=== PATIENT | female | born 1940 | race Caucasian/White ===

== ENCOUNTER → 2023-01-16 11:04 | Outpatient (CLI) | payer MEDICARE, SELFPAY ==
[2023-01-16 12:42] LABS: Add Manual Diff / Slide Review NO; Basophils Absolute Auto 100 /uL (0-100); Eosinophils Absolute Auto 500 /uL (0-450); Eosinophils Percent Auto 5.3 % (2-4); Hematocrit 32.1 % (36-46); Hemoglobin 10.8 g/dL (12.0-16.0); Lymphocytes Absolute Auto 1500 /uL (1100-4500); Lymphocytes Percent Auto 15.4 % (25-40); Mean Corpuscular HGB Conc 33.6 % (30-36); Mean Corpuscular Hemoglobin 29.2 PG (26-34); Mean Corpuscular Volume 87.1 fL (80-100); Monocytes Absolute Auto 900 /uL (0-900); Monocytes Percent Auto 9.7 % (3-14); Neutrophils Absolute Auto 6500 /uL (1500-7000); Neutrophils Percent Auto 68.6 % (50-75); Platelet Count 246 X10^3/uL (150-400); Red Blood Cell Count 3.69 X10^6/uL (4.0-5.2); Red Cell Distribution Width 13.4 % (11.6-14.8); White Blood Cell Count 9.4 X10^3/uL (4.5-11.0)
[2023-01-16 13:10] LABS: BUN Creatinine Ratio 18.5 (6-22); Blood Urea Nitrogen 20 mg/dL (7-17); Calcium 9.4 mg/dL (8.4-10.2); Carbon Dioxide 26 mmol/L (22-32); Chloride 105 mmol/L (98-107); Estimated Glomerular Filt Rate 52 mL/min (>60); Glucose 92 mg/dL (80-110); HEMOLYSIS < 15 (0-50); Potassium 4.4 mmol/L (3.4-5.1); Sodium 138 mmol/L (137-145)
== END ==
PROVIDERS: Referring Provider Internal Medicine Interventional Cardiology; Visit Provider Internal Medicine Interventional Cardiology
DX: I35.0 Nonrheumatic aortic (valve) stenosis (principal)
CPT/HCPCS: 36415; 80048; 85025

== ENCOUNTER → 2023-11-28 12:12 | Outpatient (CLI) | payer MEDICARE, SELFPAY ==
[2023-11-28 13:48] LABS: Add Manual Diff / Slide Review NO; Basophils Absolute Auto 100 /uL (0-100); Eosinophils Absolute Auto 300 /uL (0-450); Eosinophils Percent Auto 3.1 % (2-4); Hematocrit 33.5 % (36-46); Hemoglobin 11.1 g/dL (12.0-16.0); Lymphocytes Absolute Auto 1800 /uL (1100-4500); Lymphocytes Percent Auto 18.7 % (25-40); Mean Corpuscular HGB Conc 33.3 % (30-36); Mean Corpuscular Hemoglobin 29.3 PG (26-34); Mean Corpuscular Volume 87.9 fL (80-100); Monocytes Absolute Auto 800 /uL (0-900); Monocytes Percent Auto 8.3 % (3-14); Neutrophils Absolute Auto 6600 /uL (1500-7000); Neutrophils Percent Auto 68.9 % (50-75); Platelet Count 312 X10^3/uL (150-400); Red Blood Cell Count 3.81 X10^6/uL (4.0-5.2); Red Cell Distribution Width 13.1 % (11.6-14.8); White Blood Cell Count 9.6 X10^3/uL (4.5-11.0)
[2023-11-28 14:21] LABS: BUN Creatinine Ratio 19.5 (6-22); Blood Urea Nitrogen 24 mg/dL (7-17); Calcium 10.4 mg/dL (8.4-10.2); Carbon Dioxide 25 mmol/L (22-32); Chloride 107 mmol/L (98-107); Estimated Glomerular Filt Rate 44 mL/min (>60); Glucose 141 mg/dL (80-110); HEMOLYSIS < 15 (0-50); Potassium 4.5 mmol/L (3.4-5.1); Sodium 139 mmol/L (137-145)
== END ==
LOC: LAB 12:14
PROVIDERS: PCP Nurse Practitioner Family; Referring Provider Internal Medicine Interventional Cardiology; Visit Provider Internal Medicine Interventional Cardiology
DX: Z95.2 Presence of prosthetic heart valve (principal); I35.0 Nonrheumatic aortic (valve) stenosis
CPT/HCPCS: 36415; 80048; 85025

== ENCOUNTER 2024-02-19 08:03 | Day surgery (SDC) | payer MEDICARE, SELFPAY ==
--- NOTE | 2024-02-19 | PATH_ITS ---
[facility] Accession Number: [id number] No. of containers..01 Tissue . 01 Material submitted: . esophagus, E-G Junction - GE JUNCTION . 01 Clinical history: . R/O PINK'S . 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 No dysplasia identified. . 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 STO 02/21/2024 1416 Local . 01 Electronically signed: . Wyatt Vance MD, Pathologist NPI- [id number] . 01 Gross description: . Received in formalin with two patient identifiers and GE junction, is a single hand soft tissue fragment, 0.5 cm in greatest dimension, submitted in A1. ([id number]) /MRV 02/21/20246 Local . 01 Pathologist provided ICD-10: K22.70 . 01 CPT . 971538 Specimen Comment: A courtesy copy of this report has been sent to [phone] Performed at: [address] [id number] MD Wyatt Vance MD Phone: [phone]
[2024-02-19 08:34] VITALS: BP 151/70; PULSE 63; RESP 16; TEMP 36.1; O2SAT 98
--- NOTE | 2024-02-19 08:36 | P.HP_ITS ---
History of Present Illness History of Present Illness Chief complaint: [facility] – [place] Narrative: history of worsening GE reflux and possible mild dysphagia PFSH Medical History (Updated 02/19/24 @ 08:25 by Ina Bolden, RN) Hx of hyperlipidemia Hx of primary hypertension Hx of gastroesophageal reflux (GERD) Surgical History (Updated 02/19/24 @ 08:25 by Ina Bolden, RN) History of carpal tunnel surgery Hx of hemorrhoidectomy History of bunionectomy Heart valve replaced (~2022) Meds Home Medications and Allergies Home Medications Medication Instructions Recorded Confirmed Type Aspir-81 81 mg PO DAILY 02/19/24 02/19/24 History atorvastatin 20 mg tablet 20 mg PO DAILY 02/19/24 02/19/24 History calcium carbonate 500 mg PO DAILY 02/19/24 02/19/24 History cholecalciferol (vitamin D3) 25 25 mcg PO DAILY 02/19/24 02/19/24 History mcg (1,000 unit) chewable tablet (Vitamin D3) evolocumab 140 mg/mL subcutaneous 140 mg SUBCUT Q2W 02/19/24 02/19/24 History pen injector (Repatha Ninaick) famotidine 20 mg tablet 20 mg PO BID 02/19/24 02/19/24 History magnesium 100 mg capsule 100 mg PO BEDTIME 02/19/24 02/19/24 History metoprolol succinate 25 mg 12.5 mg PO BID 02/19/24 02/19/24 History tablet,extended release 24 hr Allergies Allergy/AdvReac Type Severity Reaction Status Date / Time tetracycline Allergy Intermediate Rash Verified 02/19/24 08:21 Exam Narrative Exam Narrative: oropharynx free of lesions Chest clear to auscultation percussion Assessment & Plan Assessment & Plan narrative: worsening GE reflux with mild dysphagia rule out stricture versus eosinophilic esophagitis versus peptic ulceration. Risks, benefits, alternatives have been explained. Time-Based Coding :: [TOTAL MINUTES] spent with patient and on the chart (including review of chart, obtaining history, exam, reviewing outside data, placing orders, documenting exam and treatment plan, and counseling patient) on [DATE].
--- NOTE | 2024-02-19 08:37 | PM.OP.EGD ---
Operative Date/Time/Diagnoses Date of procedure: 02/19/24 Pre-op diagnosis: see indication and findings Procedure & Clinicians Study performed: EGD Indications: worsening GE reflux and mild dysphagia Surgeon: Chris Munoz Procedure Notes Procedure in detail: after informed consent was obtained the patient was placed in left lateral decubitus position. The video upper scope was placed into the oropharynx and with the patient's help swallowed into the esophagus. The esophagus stomach and duodenum were carefully examined. On withdrawal, retroflexed view the GE junction was performed. The scope was removed. The patient tolerated procedure well. Blood loss none Complications none Sedation mac Findings 1. Esophagus essentially normal until GE junction. Here there was an irregular squamocolumnar junction with the appearance of short-segment Avelar's. Biopsies were taken to rule out Avelar's 2. Normal stomach 3. Normal duodenal bulb and sweep Patient is improved on current medications would remain on and for another 1-2 months before we contacting primary GI provider
[2024-02-19] MEDS: LACTATED RINGERS 1,000 ML 42 ML IV (08:47)
[2024-02-19 09:35] VITALS: BP 138/61; PULSE 61; RESP 14; TEMP 36.8; O2SAT 98
[2024-02-19 09:40] VITALS: BP 136/56; PULSE 54; RESP 12; O2SAT 96
[2024-02-19 09:45] VITALS: BP 148/69; PULSE 58; RESP 14; O2SAT 98
[2024-02-19 09:46] VITALS: BP 141/69; PULSE 58; RESP 14; TEMP 36.8; O2SAT 98
== END 2024-02-19 10:08 | disposition home or self-care (01) ==
PROVIDERS: PCP Nurse Practitioner Family; Referring Provider Internal Medicine Gastroenterology; Visit Provider Internal Medicine Gastroenterology
PROC: 0DJ08ZZ Inspection of Upper Intestinal Tract, Via Natural or Artificial Opening Endoscopic (ICD-10-PCS; CPT 43239; principal; 2024-02-19 09:30)
DX: K22.70 Barrett's esophagus without dysplasia (principal); K21.9 Gastro-esophageal reflux disease without esophagitis
CPT/HCPCS: 43239; J2704